=== PATIENT | male | born 1970 | race Caucasian/White ===

== ENCOUNTER → 2019-08-01 | Outpatient (CLI) | payer BC ==
[~2019-08-01] MED LIST: NO HOME MEDICATIONS; PEPCID AC 10MG10 MG PO; SOLU-MEDRO1000 MG/1 IV; TYLENOL 500MG500 MG PO
== END ==
LOC: COL.RAD 09:35
DX: D72.819 Decreased white blood cell count, unspecified (principal)

== ENCOUNTER 2021-02-16 08:30 | Day surgery (SDC) | payer BC ==
[~2021-02-16] VITALS: Ht 177.8 cm; Wt 80.0 kg
[2021-02-16] MEDS ORDERED: AUBAGIO14 MG PO (09:12)
[2021-02-16 09:24] VITALS: BP 133/92; PULSE 57; TEMP 98.2
[2021-02-16 12:45] VITALS: BP 137/89; PULSE 55; TEMP 97.4
[2021-02-16 13:00] VITALS: BP 147/86; PULSE 62
[2021-02-16 13:15] VITALS: BP 149/95; PULSE 51
--- NOTE | 2021-02-16 13:15 | NUR ---
Patients vital signs remain stable. Patient ambulated with steady gait to restroom. Patient reported mild discomfort at initial urine steam. Educated patient that this is normal, it should resolve and to call for any question or concerns.
[2021-02-16] MEDS ORDERED: FLOMAX 0.40.4 MG/CAP PO (13:30)
[2021-02-16] MEDS ORDERED: NORCO 325 MG-51 TAB PO (13:30)
--- NOTE | 2021-02-16 13:30 | NUR ---
Reviewed discharge instructions with patient and family. Patient and family confirm understanding of instruction. Discontinued patients IV and instructed to call when ready.
--- NOTE | 2021-02-16 13:40 | NUR ---
Escorted patient with via wheel chair to personal vehicle.
--- NOTE | 2021-02-16 14:19 | NUR ---
Patient came back to [facility] via cart. Post op vital signs started and are stable. Patient request ice water and tolerated it well.
--- NOTE | 2021-02-16 14:23 | NUR ---
Patients vital signs remain stable. was brought to the bedside. Patient requested apple sauce and tolerated it well.
== END 2021-02-16 13:40 | disposition home or self-care (01) ==
LOC: SDCO 08:30
DX: N13.2 Hydronephrosis with renal and ureteral calculous obstruction (principal); G35 Multiple sclerosis; Z79.899 Other long term (current) drug therapy
CPT/HCPCS: C1769; C2617; J0360; J0690; J1100; J2405; J2704; J3010; J7120

== ENCOUNTER → 2021-05-17 | Outpatient (CLI) | payer BC ==
[~2021-05-17] MED LIST changes: +AUBAGIO14 MG PO; +FLOMAX 0.40.4 MG/CAP PO; +NORCO 325 MG-51 TAB PO; +ONE-A-DAY ESSE1 EACH PO; +PROBIOTIC 2 BI1 EACH PO; +VITAMIN D3500 UNIT/5 PO
== END ==
LOC: COL.RAD 12:23
DX: N13.30 Unspecified hydronephrosis (principal); Z87.442 Personal history of urinary calculi

== ENCOUNTER 2021-07-02 07:34 | Day surgery (SDC) | payer BC ==
[~2021-07-02] VITALS: Ht 177.8 cm; Wt 80.9 kg
[~2021-07-02 07:34] MED LIST changes: -ONE-A-DAY ESSE1 EACH PO; -PROBIOTIC 2 BI1 EACH PO; -VITAMIN D3500 UNIT/5 PO
[2021-07-02] MEDS ORDERED: VITAMIN D3500 UNIT/5 PO (08:17)
[2021-07-02] MEDS ORDERED: ONE-A-DAY ESSE1 EACH PO (08:17)
[2021-07-02] MEDS ORDERED: PROBIOTIC 2 BI1 EACH PO (08:17)
[2021-07-02 08:22] VITALS: BP 127/85; PULSE 59; TEMP 98.2
[2021-07-02] MEDS ORDERED: FLOMAX 0.40.4 MG/CAP PO (10:49)
[2021-07-02 11:25] VITALS: BP 138/84; PULSE 50; TEMP 97.6
--- NOTE | 2021-07-02 11:25 | NUR ---
Pt returns to [facility] from PACU, alert and oriented x3, denies pain or nausea. Call light in reach.
[2021-07-02 11:40] VITALS: BP 123/75; PULSE 49
--- NOTE | 2021-07-02 11:45 | NUR ---
Pt tolerates applesauce and water well, no pain or nausea. VSS. Pt voided in PACU and denies need to void again. Call light in reach.
[2021-07-02 11:55] VITALS: BP 132/74; PULSE 50
--- NOTE | 2021-07-02 12:10 | NUR ---
Dr. Alves notified that pt would like pain medication called in for home, strings from stent taped to penis and pt educated to pull on Monday. Pt given discharge instructions and he will call for follow up appointment. Pt's notified and picks pt up at 1215, pt taken to vehicle per wheelchair.
[2021-07-02 12:57] VITALS: BP 138/86; PULSE 52; TEMP 98.3
== END 2021-07-02 12:15 | disposition home or self-care (01) ==
LOC: SDCO 07:34
DX: N13.2 Hydronephrosis with renal and ureteral calculous obstruction (principal); G35 Multiple sclerosis; Z20.822 Contact with and (suspected) exposure to COVID-19; Z90.89 Acquired absence of other organs; Z79.899 Other long term (current) drug therapy
CPT/HCPCS: C1769; C2617; J0690; J1100; J1885; J2405; J2704; J3010; J7120; Q9967

== ENCOUNTER → 2021-08-05 | Outpatient (CLI) | payer BC ==
[~2021-08-05] MED LIST changes: +ONE-A-DAY ESSE1 EACH PO; +PROBIOTIC 2 BI1 EACH PO; +VITAMIN D3500 UNIT/5 PO
== END ==
LOC: COL.RAD 11:51
DX: N13.2 Hydronephrosis with renal and ureteral calculous obstruction (principal)
CPT/HCPCS: A9562; J1940

== ENCOUNTER 2024-04-11 12:40 | Day surgery (SDC) | payer BC ==
[~2024-04-11] VITALS: Ht 177.8 cm; Wt 84.4 kg
[~2024-04-11 12:40] MED LIST changes: +LR 1,000 ML IV SCH
--- NOTE | 2024-04-11 13:52 | NUR ---
PATIENT ADMITTED TO ROOM 6 AMBULATORY AND IS ALERT AND ORIENTED. VOICES UNDERSTANDING OF SURGERY AND CONSENTS SIGNED. IVF INFUSING AND READIED FOR SURGERY. HAS FRIEND TO CALL FOR [facility] HOME. PROVIDED SPOUSE'S NAME AND PHONE NUMBER FOR EMERGENCY CONTACT WHO IS CURRENTLY OOT.
[2024-04-11 14:04] VITALS: BP 119/85; PULSE 58; TEMP 98.1
[2024-04-11] MEDS ORDERED: Ondansetron 4 MG/2 ML VIAL ONE (14:05)
[2024-04-11] MEDS ORDERED: Lidocaine PF 2% (20 MG/ML) 5 ML VIAL ONE (14:05)
[2024-04-11] MEDS ORDERED: dexAMETHasone 10 MG/ML VIAL ONE (14:05)
[2024-04-11] MEDS ORDERED: fentaNYL 50 MCG/ML 2 ML VIAL ONE (14:06)
[2024-04-11] MEDS ORDERED: Lidocaine 2% (20 MG/ML) 20 ML UROJET UR ONE (14:10)
[2024-04-11] MEDS ORDERED: HYDROmorphone 1 MG/1 ML SYRINGE [PACU/SDC ONLY] IV PRN (14:30)
[2024-04-11] MEDS ORDERED: Ondansetron 4 MG/2 ML VIAL IV PRN (14:30)
[2024-04-11] MEDS ORDERED: Ketorolac 15 MG/ML VIAL IV PRN (14:30)
[2024-04-11] MEDS ORDERED: fentaNYL 50 MCG/ML 1 ML SYRINGE/VIAL [PACU/SDC ONLY] IV PRN (14:30)
[2024-04-11] MEDS ORDERED: Meperidine 50 MG/ML 1 ML VIAL IV PRN (14:30)
[2024-04-11] MEDS ORDERED: PERCOCET 325 MG1 TA2 PO (15:30)
[2024-04-11 15:50] VITALS: BP 134/94; PULSE 57; TEMP 97.3
--- NOTE | 2024-04-11 15:50 | NUR ---
PATIENT RETURNS TO ROOM 6 PER CART FROM PACU ACCOMPANIED BY CRISTY PRECIADO AND IS AWAKE AND ALERT. IVF INFUSING AND SITE IS FREE OF REDNESS. DENIES PAIN OR NAUSEA. TAKING ICE CHIPS AND DRINKING WATER. WIRE FOR URETERAL STENT SECURED TO INNER THIGH. CALL LIGHT IN REACH.
[2024-04-11 16:05] VITALS: BP 142/90; PULSE 55
[2024-04-11 16:20] VITALS: BP 143/88; PULSE 53
--- NOTE | 2024-04-11 16:20 | NUR ---
CONTINUES TO DENY PAIN OR NAUSEA. TOLERATES LIQUIDS WELL.
--- NOTE | 2024-04-11 16:30 | NUR ---
IV DISCONTINUED AND SITE IS FREE OF REDNESS. PATIENT IS DRESSING SELF. PATIENT CALLED FRIEND FOR RIDE HOME.
--- NOTE | 2024-04-11 16:47 | NUR ---
DISCHARGE INSTRUCTIONS WERE GIVEN AND INSTRUCTED TO PULL STENT AT HOME ON 04/16/2024. STATES HE HAS DONE THIS BEFORE AND HAS NO QUESTIONS. PATIENT TAKEN TO PRIVATE VEHICLE DRIVEN BY FRIEND AND ASSISTED INTO CAR WITH DISMISSAL INSTRUCTIONS IN HAND.
== END 2024-04-11 16:47 | disposition home or self-care (01) ==
LOC: SDCO 12:40
DX: N13.2 Hydronephrosis with renal and ureteral calculous obstruction (principal)
CPT/HCPCS: C1769; C2617; J0690; J1100; J2405; J2704; J3010; J7120